=== PATIENT | female | born 1960 | race Two or more races ===

== ENCOUNTER 2019-01-09 07:10 | Day surgery (SDC) | payer OTHER ==
[~2019-01-09 07:10] MED LIST: LIPITOR PO; LOTREL 5-10 MG1 CAP PO; MAXIMUM D310000 UNIT PO; TOPROL XL100 M1 PO
[2019-01-09] MEDS ORDERED: PERCOCET 5-3251 EACH PO (11:22)
== END 2019-01-09 14:20 | disposition home or self-care (01) ==
LOC: CIR.AMB 07:10
DX: D35.1 Benign neoplasm of parathyroid gland (principal)